=== PATIENT | female | born 1980 | race Two or more races ===

== ENCOUNTER 2016-09-24 13:46 | Outpatient (CLI) | payer OTHER ==
[~2016-09-24] VITALS: Ht 157.5 cm; Wt 55.8 kg
[~2016-09-24 13:46] MED LIST: VITA100067 PO
[2016-09-24] MEDS ORDERED: NS 1,000 ML IV SCH (14:00)
[2016-09-24] MEDS ORDERED: PROPOFOL 200 MG/20 ML VIAL As Ordered ONE (14:48)
[2016-09-24] MEDS ORDERED: LIDOCAINE 2% MDV 20 ML VIAL As Ordered ONE (14:48)
--- NOTE | 2016-09-24 14:56 | ROOR ---
Patient Name: Alisson Uriostegui Procedure Date: 09/24/2016 2:33 PM Date of : 1980 Age: 36 Room: [facility] Gender: Female Note Status: Finalized Procedure: Total Colonoscopy to Cecum Indications: Colon cancer screening in patient at increased risk: Family history of 1st-degree relative with colon polyps before age 60 years Providers: Freddy King MD Referring MD: Yesenia Thompson DO Requesting Provider: Medicines: Monitored Anesthesia Care Complications: No immediate complications. Procedure: Pre-Anesthesia Assessment: - The heart rate, respiratory rate, oxygen saturations, blood pressure, adequacy of pulmonary ventilation, and response to care were monitored throughout the procedure. The Colonoscope was introduced through the anus and advanced to the cecum, identified by appendiceal orifice and ileocecal valve. The colonoscopy was performed without difficulty. The patient tolerated the procedure well. The quality of the bowel preparation was excellent. Findings: The perianal and digital rectal examinations were normal. Non-bleeding internal hemorrhoids were found during retroflexion. The hemorrhoids were small and Grade I (internal hemorrhoids that do not prolapse). No other significant abnormalities were identified in a careful examination of the remainder of the colon. The exam was otherwise without abnormality on direct and retroflexion views. Impression: - Non-bleeding internal hemorrhoids. - The examination was otherwise normal on direct and retroflexion views. - No specimens collected. - The exam was otherwise normal to the cecum. Recommendation: - Patient has a contact number available for emergencies. The signs and symptoms of potential delayed complications were discussed with the patient. Return to normal activities tomorrow. Written discharge instructions were provided to the patient. - High fiber diet. - Discharge patient to home. - Continue present medications. - Repeat colonoscopy in 5 years for screening purposes. - Return to referring physician. - The findings and recommendations were discussed with the patient's family. Freddy King MD Freddy King MD 09/24/2016 2:56:11 PM This report has been signed electronically. Number of Addenda: 0 Note Initiated On: 09/24/2016 2:33 PM Estimated Blood Loss: Estimated blood loss: none.
[2016-09-24 15:37] VITALS: BP 89/47
== END 2016-09-24 15:41 | disposition home or self-care (01) ==
LOC: M OPP 13:46
PROVIDERS: ATTEND Internal Medicine Gastroenterology
DX: Z12.11 Encounter for screening for malignant neoplasm of colon (principal); Z83.71 Family history of colonic polyps; K64.0 First degree hemorrhoids; E16.2 Hypoglycemia, unspecified; R00.2 Palpitations; R03.1 Nonspecific low blood-pressure reading; Z88.2 Allergy status to sulfonamides

== ENCOUNTER 2017-01-24 22:11 | Emergency (ER) | payer OTHER ==
[~2017-01-24] VITALS: Ht 157.5 cm; Wt 55.9 kg
[2017-01-24 22:12] VITALS: BP 112/58
== END 2017-01-24 23:01 | disposition home or self-care (01) ==
LOC: M ED 22:11
DX: S00.412A Abrasion of left ear, initial encounter (principal); W22.8XXA Striking against or struck by other objects, initial encounter; Y92.89 Other specified places as the place of occurrence of the external cause; Y93.75 Activity, martial arts; Y99.8 Other external cause status; H92.02 Otalgia, left ear; Z88.1 Allergy status to other antibiotic agents; Z88.2 Allergy status to sulfonamides

== ENCOUNTER → 2018-04-11 | Outpatient (CLI) | payer OTHER ==
--- NOTE | 2018-04-11 09:49 | REP ---
Clinical: Right elbow pain . Technique: AP, lateral, bilateral oblique views of the right elbow. Findings: No acute fracture or dislocation is appreciated. Joint spaces and surrounding soft tissues appear normal. Lateral view demonstrates normal positioning to the anterior and posterior fat pads without evidence for effusion/hemarthrosis. No subcutaneous emphysema or foreign body identified. Impression: Normal right elbow radiographs. Electronically Signed by Arnold Valerio MD 04/11/2018 09:40 A
== END ==
LOC: M WUC 09:05
PROVIDERS: ATTEND Physician Assistant
DX: M25.521 Pain in right elbow (principal)